=== PATIENT | female | born 1995 | race Caucasian/White ===

== ENCOUNTER 2017-11-18 09:15 | Day surgery (SDC) | payer OTHER ==
[2017-11-18 10:35] LABS: CONTROL LINE UCG INT CTR LINE PRESENT; URINE PREG TEST NEGATIVE (NEGATIVE)
[2017-11-18] MEDS: LR 1,000 ML IV (10:47)
[2017-11-18] MEDS ORDERED: ROCURONIUM BROMIDE 50 MG/5 ML VIAL As Ordered (11:44)
[2017-11-18] MEDS ORDERED: MIDAZOLAM INJ 2 MG/2 ML VIAL (J2250) As Ordered (11:44)
[2017-11-18] MEDS ORDERED: LIDOCAINE 2% INJ 100 MG/5 ML SDV (FOR ANES.) As Ordered (11:44)
[2017-11-18] MEDS ORDERED: PROPOFOL 200 MG/20 ML VIAL As Ordered (11:44)
[2017-11-18] MEDS ORDERED: fentaNYL 100 MCG/2 ML INJECTION (J3010) As Ordered ×4 (11:44→14:29)
[2017-11-18] MEDS ORDERED: SUCCINYLCHOLINE 100 MG/5 ML SYRINGE (J0330) As Ordered (11:44)
[2017-11-18] MEDS ORDERED: ONDANSETRON 4MG/2ML VIAL (J2405) As Ordered ×2 (11:44→13:49)
[2017-11-18] MEDS: OXYMETAZOLINE NASAL SPRAY (AFRIN) As Ordered (12:44)
[2017-11-18] MEDS: dexameTHASONE 4 MG/ML 1ML VIAL (J1100) IV (13:02)
[2017-11-18] MEDS ORDERED: NEOSTIGMINE 10 MG/10 ML VIAL (J2710) As Ordered (13:21)
[2017-11-18] MEDS ORDERED: GLYCOPYRROLATE INJ 0.2 MG/ML 2 ML VIAL As Ordered ×2 (13:22)
[2017-11-18] MEDS ORDERED: PERCOCET 5MG/325MG TAB As Ordered (13:49)
[2017-11-18] MEDS: fentaNYL 100 MCG/2 ML INJECTION (J3010) IV ×4 (13:50→14:05)
[2017-11-18] MEDS: ONDANSETRON 4MG/2ML VIAL (J2405) IV (13:55)
[2017-11-18] MEDS ORDERED: METOCLOPRAMIDE INJ 10MG/2ML VIAL (J2765) IV (14:00)
[2017-11-18] MEDS: PERCOCET 5MG/325MG TAB PO (14:00)
[2017-11-18] MEDS ORDERED: LR 1,000 ML IV ×2 (14:00)
== END 2017-11-18 15:28 | disposition home or self-care (01) ==
LOC: M SDC 09:15
DX: J35.1 Hypertrophy of tonsils (principal)
CPT/HCPCS: 42826